=== PATIENT | male | born 1995 | race American Indian/Alaskan Native ===

== ENCOUNTER 2017-05-18 22:40 | Emergency (ER) | payer OTHER ==
[2017-05-18 23:03] VITALS: BP 122/77; PULSE 72; TEMP 98.9; BMI 22.7
[2017-05-18 23:08] VITALS: RESP 18; O2SAT 98
--- NOTE | 2017-05-18 23:22 | ED PDOC ---
Arrival/HPI - General Chief Complaint: Finger,Hand,&Wrist Time Seen by Provider: 05/18/17 23:21 Historian: Patient - History of Present Illness Narrative History of Present Illness (Text): 05/18/17 23:21 This 21 yo male presents to this ED c/o right 5th finger injury x 2 week. Patient stated after punching, he injured his finger. Patient was examined at [facility] x 1 week ago. Patient was told everything was fine, and he was sent home. Patient noted his distal right 5th finger appears bent. Denies other complains. Time/Duration: Other (2 weeks) Context: Home Past Medical History - Provider Review Nursing Documentation Reviewed: Yes - Cardiac Hx Cardiac Disorders: No - Pulmonary Hx Asthma: Yes - Neurological Hx Neurological Disorder: No - HEENT Hx HEENT Disorder: No - Renal Hx Renal Disorder: No - Endocrine/Metabolic Hx Endocrine Disorders: No - Hematological/Oncological Hx Blood Disorders: No - Integumentary Hx Dermatological Disorder: No - Musculoskeletal/Rheumatological Hx Musculoskeletal Disorders: No - Gastrointestinal Hx Gastrointestinal Disorders: No - Genitourinary/Gynecological Hx Genitourinary Disorders: No - Psychiatric Hx Psychophysiologic Disorder: No Hx Substance Use: No - Anesthesia Hx Anesthesia: No Family/Social History - Physician Review Nursing Documentation Reviewed: Yes Family/Social History: Other (non-contributory) Smoking Status: Current Some Days Smoker Hx Alcohol Use: Yes Frequency of alcohol use: Socially Hx Substance Use: No Allergies/Home Meds Allergies/Adverse Reactions: Allergies shellfish derived Allergy (Verified 05/18/17 23:03) RASH Review of Systems - Review of Systems Constitutional: Normal. absent: Fatigue, Weight Change, Fevers Eyes: Normal ENT: Normal Respiratory: Normal Cardiovascular: Normal Gastrointestinal: Normal Genitourinary Male: Normal Musculoskeletal: Other (see hpi) Skin: Normal Neurological: Normal Endocrine: Normal Hemo/Lymphatic: Normal Psychiatric: Normal Physical Exam Vital Signs Temp Pulse Resp BP Pulse Ox 05/18/17 23:04 98.9 F 72 18 122/77 98 05/18/17 23:02 98.9 F 72 16 122/77 100 Temperature: Afebrile Blood Pressure: Normal Pulse: Regular Respiratory Rate: Normal Appearance: Positive for: Well-Appearing, Non-Toxic, Comfortable Pain Distress: None Mental Status: Positive for: Alert and Oriented X 3 - Systems Exam Head: Present: Atraumatic, Normocephalic Pupils: Present: PERRL Extroacular Muscles: Present: EOMI Conjunctiva: Present: Normal Mouth: Present: Moist Mucous Membranes Neck: Present: Normal Range of Motion Upper Extremity: Present: NORMAL PULSES, Neurovascularly Intact, Capillary Refill < 2s, Other ((+) maalet finger). No: Tenderness, Swelling, Erythema, Temperature Abnormalties Lower Extremity: Present: Normal Inspection, Normal ROM Neurological: Present: GCS=15, CN II-XII Intact, Speech Normal Skin: Present: Warm, Dry, Normal Color. No: Rashes Psychiatric: Present: Alert, Oriented x 3 Medical Decision Making ED Course and Treatment: 05/19/17 00:20 Re-evaluation. Patient feels better. Discussed results and plan with patient who expresses understanding. All questions answered and there is agreement with the plan to discharge home with instructions. Patient stable for discharge. Return if symptoms persist or worsen. Re-evaluation Time: 00:20 Reassessment Condition: Re-examined, Improved - RAD Interpretation Narrative RAD Interpretations (Text): 05/19/17 00:20 Finger x-rays: (+) mallet finger with avulsion Fx Radiology Orders: 05/18/17 23:31 HAND RIGHT 5TH DIGIT (FINGER) [RAD] Stat - Procedure PROCEDURE NOTE (Text): 05/19/17 00:20 Finger splint applied Disposition/Present on Arrival - Present on Arrival Any Indicators Present on Arrival: No History of DVT/PE: No History of Uncontrolled Diabetes: No Urinary Catheter: No History of Decub. Ulcer: No History Surgical Site Infection Following: None - Disposition Have Diagnosis and Disposition been Completed?: Yes Diagnosis: Mallet finger of right hand, Finger fracture Disposition: HOME/ ROUTINE Disposition Time: 00:21 Patient Plan: Discharge Condition: GOOD Discharge Instructions (ExitCare): Jammed Finger (ED), Finger Fracture (ED) Additional Instructions: Call private hand doctor for follow up visit in 1-3 days. Keep finger splint at all times till clear by hand doctor. Take OTC Ibuprofen for pain as needed. Prescriptions: Ibuprofen [Motrin] 400 mg PO Q8H PRN #20 tab PRN Reason: Pain, Severe (8-10) Referrals: Holland Owens MD [Staff Provider] - Follow up with primary Forms: [employer] (Romansh), WORK NOTE
--- NOTE | 2017-05-19 08:07 | RAD ---
PROCEDURE: Right small finger radiographs. HISTORY: trauma, pain, swelling COMPARISON: None. TECHNIQUE: AP radiograph of the right hand, as well as spot oblique and lateral images of small finger were obtained. FINDINGS: RIGHT SMALL FINGER: Examination is positive for avulsion fractures of the volar plate of the proximal interphalangeal joint of the right small finger as well as the dorsal plate at the distal interphalangeal joint of the same finger. No dislocation or large fracture. No subluxation. No suspicious lytic or blastic change. JOINTS: See above. SOFT TISSUES: Limited local soft tissue edema is appreciated at the proximal and distal interphalangeal joints right small finger. OTHER FINDINGS: None. IMPRESSION: Volar and dorsal plate avulsion fractures are identified at the proximal and distal interphalangeal joints respectively without dislocation.
== END 2017-05-19 01:05 | disposition home or self-care (01) ==
LOC: MERGE 22:40 → ED 22:40
DX: M20.011 Mallet finger of right finger(s) (principal); S62.606D Fracture of unspecified phalanx of right little finger, subsequent encounter for fracture with routine healing; W22.8XXD Striking against or struck by other objects, subsequent encounter